=== PATIENT | male | born 1995 | race Caucasian/White ===

== ENCOUNTER 2017-09-15 23:33 | Emergency (ER) | payer OTHER ==
[2017-09-15 23:45] LABS: IMMEDIATE SPIN CROSSMATCH 1 2
[2017-09-15] MEDS ORDERED: SOD CHLORIDE 0.9% 1,000 ML IV (23:46)
[2017-09-15 23:52] LABS: ADD MAN DIFF? NO
[2017-09-15 23:53] LABS: BASOPHILS % 0.3 % (0.0-2.0); EOSINOPHILS % 0.1 % (0.0-7.0); HEMATOCRIT 44.4 % (42.0-52.0); HEMOGLOBIN 15.4 g/dl (14.0-18.0); LYMPHOCYTES # 2.2 10^3/ul (0.8-2.9); LYMPHOCYTES % 28.3 % (15.0-51.0); MEAN CORPUSCULAR HEMOGLOBIN 31.8 pg (29.0-33.0); MEAN CORPUSCULAR HGB CONC 34.7 g/dl (32.0-37.0); MEAN CORPUSCULAR VOLUME 91.5 fl (82.0-101.0); MEAN PLATELET VOLUME 10.6 fl (7.4-10.4); MONOCYTE # 0.5 10^3/ul (0.3-0.9); MONOCYTES % 6.3 % (0.0-11.0); NEUTROPHIL # 4.9 10^3/ul (1.6-7.5); NEUTROPHILS % 64.7 % (39.0-77.0); PLATELET COUNT 266 10^3/UL (140-415); RED BLOOD COUNT 4.85 10^6/ul (4.70-6.10); RED CELL DISTRIBUTION WIDTH 11.8 % (11.5-14.5)
[2017-09-15 23:53] LABS: WHITE BLOOD COUNT 7.6 10^3/ul (4.8-10.8)
[2017-09-16] MEDS ORDERED: morphine 2 MG INJ IV
[2017-09-16] MEDS ORDERED: CEFAZOLIN 1 GM/50 ML (PMX) 50 ML IVPB
[2017-09-16] MEDS ORDERED: ONDANSETRON 4 MG INJ IV
[2017-09-16] MEDS ORDERED: VANCOMYCIN 1 GM (PMX) 250 ML IVPB
[2017-09-16 00:13] LABS: ANION GAP 23 (8-16); BLOOD UREA NITROGEN 9 mg/dl (7-20); CALCIUM 9.5 mg/dl (8.4-10.2); CARBON DIOXIDE 18 mmol/L (21-31); CHLORIDE 105 mmol/L (97-110); CREATININE 1.04 mg/dl (0.61-1.24); GLUCOSE 137 mg/dl (70-220); POTASSIUM 3.1 mmol/L (3.5-5.1); SODIUM 143 mmol/L (135-144)
[2017-09-16 00:52] LABS: INR 0.98; PROTIME 13.1 Sec (11.9-14.9)
[2017-09-16 00:53] LABS: PARTIAL THROMBOPLASTIN TIME 23.4 Sec (25.0-35.0)
== END 2017-09-16 00:01 | disposition short-term general hospital (02) ==
LOC: E/R 09-16 00:01
PROVIDERS: Pediatrics Neonatal-Perinatal Medicine
DX: S31.119A Laceration without foreign body of abdominal wall, unspecified quadrant without penetration into peritoneal cavity, initial encounter (principal); S21.119A Laceration without foreign body of unspecified front wall of thorax without penetration into thoracic cavity, initial encounter; R07.9 Chest pain, unspecified; W26.8XXA Contact with other sharp object(s), not elsewhere classified, initial encounter; Y92.9 Unspecified place or not applicable
CPT/HCPCS: 36430; 71045; 80048; 85025; 85610; 85730; 86850; 86900; 86901; 86920; 99291-25